=== PATIENT | male | born 1985 | race Caucasian/White ===

== ENCOUNTER 2017-04-30 18:18 | Emergency (ER) | payer OTHER ==
[~2017-04-30] VITALS: Ht 170.2 cm; Wt 113.4 kg
[2017-04-30 20:02] VITALS: BP 102/63
== END 2017-04-30 20:02 | disposition other institution (70) ==
LOC: ED 18:18
DX: S60.512A Abrasion of left hand, initial encounter (principal); V43.62XA Car passenger injured in collision with other type car in traffic accident, initial encounter; Y93.89 Activity, other specified; Y92.89 Other specified places as the place of occurrence of the external cause; Y99.8 Other external cause status